=== PATIENT | female | born 1950 ===

== ENCOUNTER → 2018-05-19 06:31 | Outpatient (CLI) | payer OTHER | END | disposition home or self-care (01) | LOC: LAB 06:31 | DX: C73 Malignant neoplasm of thyroid gland (principal); E89.0 Postprocedural hypothyroidism ==

== ENCOUNTER 2018-05-22 12:48 | Outpatient (CLI) | payer OTHER | END 2018-05-22 14:14 | disposition home or self-care (01) | LOC: NUCLEAR 12:48 | DX: C73 Malignant neoplasm of thyroid gland (principal) | CPT/HCPCS: 79005; A9517 ==

== ENCOUNTER 2018-05-26 12:43 | Outpatient (CLI) | payer OTHER | END 2018-05-26 12:57 | disposition home or self-care (01) | LOC: NUCLEAR 12:43 | DX: C73 Malignant neoplasm of thyroid gland (principal) ==